=== PATIENT | female | born 1980 | race Caucasian/White ===

== ENCOUNTER → 2022-08-28 10:50 | Outpatient (CLI) | payer BC, SELFPAY ==
--- NOTE | ~2022-08-28 | US_ITS ---
US abdomen limited INDICATION: Abdomen pain PROCEDURE: Realtime right upper abdominal ultrasound. COMPARISON: No prior studies for comparison. FINDINGS: The pancreas is normal without focal mass or pancreatic ductal dilation. Liver echotexture is normal without focal mass or intrahepatic biliary dilatation. There is normal directional flow i n the portal vein. The gallbladder is normal without stones, gallbladder wall thickening or pericholecystic fluid. Comm on bile duct measures 5 mm. No sonographic Martinez's sign. IMPRESSION: 1: Normal limited abdominal ultrasound. Reviewed, dictated and finalized at location B.
== END ==
PROVIDERS: PCP Family Medicine; Visit Provider Physician Assistant Medical
DX: R10.9 Unspecified abdominal pain (principal)
CPT/HCPCS: 76705

== ENCOUNTER 2023-05-04 03:25 | Day surgery (SDC) | payer BC, SELFPAY ==
[2023-04-21 11:17] VITALS: BMI 20.5
[2023-05-04 08:12] VITALS: BP 113/90; PULSE 94; RESP 18; TEMP 36.7; O2SAT 100; BMI 21.6
[2023-05-04] MEDS: LACTATED RINGERS 1,000 ML 150 ML IV CONT (08:32)
--- NOTE | 2023-05-04 09:02 | PM.HPGS ---
History of Present Illness History of Present Illness Consent: Risks, benefits, and alternatives have been discussed and questions answered. Patient agrees to proceed with procedure. Chief complaint: hx colon polyps Narrative: Yanely De Guzman is a 42 year old female Presents for screening colonoscopy. Patient has a history of adenomatous colon polyp removed from the colon 2014. Patient reports her current weight appetite bowel movements are normal. Patient notes occasional right upper quadrant discomfort. She attributes this to her previous diagnosis of endometriosis. Family history is noncontributory. Patient presents today for neoplasia screening. Review of Systems Review of Systems: Review of systems noncontributory. [facility] Past Medical History Medical History (Updated 05/04/23 @ 09:04 by Remy Robles MD) Abdominal pain Anxiety Endometriosis IC (interstitial cystitis) Kidney stones Screening mammogram, encounter for Surgical History Surgical History (Updated 01/15/23 @ 14:42 by ADRIEN Daives) Delivery by section (02/18/08) primary c/s twins Delivery by section (06/28/19) rpt c/s H/O hernia repair H/O lithotripsy History of endometrial ablation (~2014) 2017 Family History Family History Father Family history of cardiovascular disease Mother Family history of malignant melanoma Grandparent Breast cancer Social History Social History (Updated 01/15/23 @ 14:41 by ADRIEN Davies) Smoking status: Never smoker Second hand tobacco smoke exposure: No Alcohol intake: never Substance use: never Substance use type: does not use Living arrangements: with family Additional living arrangements comments: Occupation/Education: other Additional occupation/education comments: stay at home mom Gender identity (if verbalized by the patient): Female Sexual Orientation (if Verbalized by the Patient): Straight or Heterosexual Spiritual care concerns: No Meds Home Medications and Allergies Home Medications Medication Instructions Recorded Confirmed Type norethindrone 1 mg-ethinyl 1 tablet PO DAILY #112 tabs 01/15/23 05/04/23 Rx estradiol 10 mcg (24)-iron 10 mcg(2) tablet (Lo Loestrin Fe) doxylamine succinate 25 mg tablet 25 mg PO HS PRN Insomnia 04/21/23 05/04/23 History (Unisom (doxylamine)) Allergies Allergy/AdvReac Type Severity Reaction Status Date / Time No Known Allergies Allergy Verified 05/04/23 08:19 Vital Signs Vital Signs - 24 hr 05/04/23 08:12 Temperature 98.0 F Pulse Rate 94 Respiratory Rate 18 Blood Pressure 113/90 Pulse Oximetry 100 Oxygen Delivery Room Air Exam Narrative: Physical exam reveals patient to be alert. Vital signs stable. HEENT exam is unremarkable. lungs are clear to auscultation and percussion. Heart is without murmur or extra sounds. Abdomen bowel sounds are present soft nontender with no organomegaly. Digital external rectal exam is normal. Assessment and Plan Assessment and plan (1) History of colon polyps: Code(s): Z86.010 - Personal history of colonic polyps Status: Acute Assessment and Plan: Patient has a history of adenomatous colon polyps removed from the colon in 2014. Plan for surveillance colonoscopy now and consider this at intervals in the future.
--- NOTE | 2023-05-04 09:16 | WPDANESEPPF ---
Anes - Initial Pre Proc Eval Procedure: Operation Date: 05/04/23 09:30 Proposed Procedures p Colonoscopy - Remy Robles MD Date/Time: 05/04/23 09:16 Surgeon: Remy Robles MD Pre Op Diagnosis: hx colon polyps Patient Data Age: 42 Gender: F Height: 1.52 m Weight: 50.2 kg Last Vital Signs Temp 98.0 F 05/04/23 08:12 Pulse 94 05/04/23 08:12 Resp 18 05/04/23 08:12 BP 113/90 05/04/23 08:12 Pulse Ox 100 05/04/23 08:12 O2 Del Method Room Air 05/04/23 08:12 Allergies Allergy/AdvReac Type Severity Reaction Status Date / Time No Known Allergies Allergy Verified 05/04/23 08:19 Home Medications Medication Instructions Recorded Confirmed Type norethindrone 1 mg-ethinyl 1 tablet PO DAILY #112 tabs 01/15/23 05/04/23 Rx estradiol 10 mcg (24)-iron 10 mcg(2) tablet (Lo Loestrin Fe) doxylamine succinate 25 mg tablet 25 mg PO HS PRN Insomnia 04/21/23 05/04/23 History (Unisom (doxylamine)) Patient hx anesthesia problems: none Family hx anesthesia problems: none Results Review: All pre-operative results and documents have been reviewed as part of the pre-operative evaluation. [facility] Past Medical History Medical History (Updated 05/04/23 @ 09:04 by Remy Robles MD) Abdominal pain Anxiety Endometriosis IC (interstitial cystitis) Kidney stones Screening mammogram, encounter for Surgical History Surgical History (Updated 01/15/23 @ 14:42 by ADRIEN Davies) Delivery by section (02/18/08) primary c/s twins Delivery by section (06/28/19) rpt c/s H/O hernia repair H/O lithotripsy History of endometrial ablation (~2014) 2016 Family History Family History Father Family history of cardiovascular disease Mother Family history of malignant melanoma Grandparent Breast cancer Social History Social History (Updated 01/15/23 @ 14:41 by ADRIEN Davies) Smoking status: Never smoker Second hand tobacco smoke exposure: No Alcohol intake: never Substance use: never Substance use type: does not use Living arrangements: with family Additional living arrangements comments: Occupation/Education: other Additional occupation/education comments: stay at home mom Gender identity (if verbalized by the patient): Female Sexual Orientation (if Verbalized by the Patient): Straight or Heterosexual Spiritual care concerns: No Anes - Eval Final PreProcedure Day of Procedure 05/04/23 09:16 Patient weight: normal Heart: regular rate and rhythm Lungs: clear to auscultation Airway: Mallampati scale class II Neurological: alert and oriented Last oral intake: >/= 8 hours ASA classification: II Emergent: no Anesthetic plan: proceed Anesthesia type and monitoring: general GIVS and standard monitoring Results Review: All pre-operative results and documents have been reviewed as part of the pre-operative evaluation. Informed Consent: The patient's anesthetic plan and its attendant risks and benefits were discussed with the patient/family/POA. Questions were solicited and answers provided to the satisfaction of the patient/family/POA.
[2023-05-04 10:02] VITALS: BP 95/62; PULSE 85; RESP 28; O2SAT 100
[2023-05-04 10:12] VITALS: BP 142/97; PULSE 90; RESP 25; O2SAT 100
[2023-05-04 10:22] VITALS: BP 138/71; PULSE 65; RESP 18; O2SAT 100
== END 2023-05-04 10:34 | disposition home or self-care (01) ==
PROVIDERS: PCP Family Medicine; Visit Provider Internal Medicine Gastroenterology
PROC: 0DJD8ZZ Inspection of Lower Intestinal Tract, Via Natural or Artificial Opening Endoscopic (ICD-10-PCS; CPT 45378; principal; 2023-05-04 09:30)
DX: Z12.11 Encounter for screening for malignant neoplasm of colon (principal); K63.5 Polyp of colon; K64.8 Other hemorrhoids
CPT/HCPCS: 45385; 88305; J2704; J7120

== ENCOUNTER 2023-05-14 15:27 | Outpatient (CLI) | payer BC, SELFPAY ==
--- NOTE | ~2023-05-14 | MM_ITS ---
EXAMINATION: MM screening malcolm BI w francisco HISTORY: Screening mammogram TECHNIQUE: Craniocaudal, rotated lateral craniocaudal and mediolateral oblique 3-D tomosynthesis imag es were obtained and synthetic 2-D images were generated. CAD analysis was submitted and interpreted. COMPARISON: 07/24/2017 bilateral screening mammogram BREAST PARENCHYMAL COMPOSITION: The breasts are extremely dense, which lowers the sensitivity of mamm ography. FINDINGS: Bilateral scattered punctate benign-appearing microcalcifications. There is no evidence of suspicious mass, calcification, or architectural distortion to suggest malignancy in either breast. T here has been no suspicious interval change. IMPRESSION: 1. No mammographic evidence of malignancy. 2. Recommend routine screening mammography in one year. BI-RADS Category 2: Benign finding(s). Reviewed, dictated and finalized at location A.
== END 2023-05-14 15:28 | disposition home or self-care (01) ==
PROVIDERS: PCP Family Medicine; Visit Provider Obstetrics & Gynecology
DX: Z12.31 Encounter for screening mammogram for malignant neoplasm of breast (principal)
CPT/HCPCS: 77063; 77067